=== PATIENT | female | born 1940 | race Caucasian/White ===

== ENCOUNTER 2017-02-02 16:08 | Inpatient (IN) | payer OTHER ==
[~2017-02-02] VITALS: Ht 152.4 cm; Wt 59.0 kg
--- NOTE | ~2017-02-02 | 2DMMODE ---
[facility] [address] [place] [address] 2 D/M-MODE ECHOCARDIOGRAM Name: LOUANNROC JULIA Room #: 422-P [facility] IN M.R.#: [id number] Admission: 02/02/17 Attend Phys: Candido Hannon, Discharge: Date of : 44 Date of Service: 02/03/17 1019 Report #: [id number] THIS REPORT FOR: //name// APPROVED REPORT Study performed: 02/03/2017 08:30:44 EXAM: Comprehensive 2D, Doppler, and color-flow Echocardiogram Patient Location: Echo lab Room #: [facility] Status: routine BSA: 1.55 HR: 84 bpm BP: 106/52 mmHg Rhythm: NSR Other Information Study Quality: Adequate Indications CAD Pericardial Effusion Hx: HLD 2D Dimensions RVDd: 35.41 mm LVEF(%): 60.64 (>50%) IVSd: 7.74 (7-11mm) LVOT Diam: 21.74 (18-24mm) LVDd: 49.72 mm PWd: 8.51 (7-11mm) Ascending Ao: 28.39 (22-36mm) LVDs: 33.55 (25-40mm) Aortic Root: 29.57 mm Oscar's LVEF: 60.64 % Volumes Left Atrial Volume (Systole) Single Plane 4CH: 44.85 mL Single Plane 2CH: 36.53 mL LA ESV Index: 29.00 mL/m2 Aortic Valve AoV Peak Mikhail.: 1.81 m/s AO Peak Gr.: 13.13 mmHg LVOT Max P.93 mmHg LVOT Max V: 1.41 m/s KEYA Vmax: 2.88 cm2 Mitral Valve [facility] [email or web address] [address] 2 D/M-MODE ECHOCARDIOGRAM Name: ROC LEW Room #: 422-P [facility] IN .R.#: [id number] Admission: 02/02/17 Attend Phys: Candido Hannon, Discharge: Date of : 44 Date of Service: 02/03/17 1019 Report #: [id number] E/A Ratio: 0.0 MV E Max Mikhail.: 0.87 m/s MV A Mikhail.: 0.00 m/s IVRT: 69.20 ms Pulmonary Valve PV Peak Mikhail.: 1.04 m/s PV Peak Gr.: 4.29 mmHg Tricuspid Valve TR Peak Mikhail.: 2.52 m/s RAP Estimate: 5.00 mmHg TR Peak Gr.: 25.43 mmHg PA Pressure: 30.00 mmHg Left Ventricle The left ventricle is normal size. There is normal left ventricular wall thickness. Left ventricular systolic function is normal. LVEF is 60-65%. Grade I - abnormal relaxation pattern. Right Ventricle The right ventricle is normal size. The right ventricular systolic function is normal. Atria The left atrium size is normal. The right atrium size is normal. Aortic Valve The aortic valve is normal in structure. No aortic regurgitation is present. There is no aortic valvular stenosis. Mitral Valve The mitral valve is normal in structure. There is mitral annular calcification. Trace mitral regurgitation. No evidence of mitral valve stenosis. Tricuspid Valve The tricuspid valve is normal in structure. Trace tricuspid regurgitation. Pulmonic Valve The pulmonary valve is normal in structure. There is no pulmonic valvular regurgitation. Great Vessels The aortic root is normal in size. The ascending aorta is normal in size. IVC is normal in size and collapses >50% with [facility] [address] [place] [address] 2 D/M-MODE ECHOCARDIOGRAM Name: ROC LEW Room #: 422-P [facility] IN M.R.#: [id number] Admission: 02/02/17 Attend Phys: Candido Hannon, Discharge: Date of : 44 Date of Service: 02/03/17 1019 Report #: [id number] inspiration. Pericardium Trace pericardial effusion. <Conclusion> The left ventricle is normal size. LVEF is 60-65%. The aortic valve is normal in structure. The mitral valve is normal in structure. There is mitral annular calcification. Trace mitral regurgitation. The tricuspid valve is normal in structure. Trace tricuspid regurgitation. The pulmonary valve is normal in structure. <ELECTRONICALLY SIGNED> By: Mickey Cotter MD 02/03/17 1019 1019 [id number] Mickey Cotter MD /INF
--- NOTE | ~2017-02-02 | EKG ---
[address] [place] [address] ELECTROCARDIOGRAM REPORT Name: LOUANNROCSALVADOR DUMONT Room #: 422-P ADM IN M.R.#: [id number] Admission: 02/02/17 Attend Phys: Candido Hannon DO Discharge: Date of : 44 Report #: [id number] THIS REPORT FOR: //name// [facility] ED Test Date: 2017-02-02 Test Time: 18:23:47 Pat Name: ROC LEW Department: Room: 422 Gender: F Cell [employer]: MURPHY : 1940 Requested By: Demetrio Cervantes Order Number: [id number] MD: Neo Thomas Measurements Intervals [place] Rate: 89 P: 40 [place]: 150 QRS: 13 QRSD: 91 T: 30 QT: 390 QTc: 475 Interpretive Statements Sinus rhythm Nonspecific ST and T wave abnormality No previous ECG available for comparison Electronically Signed On 02-03-2017 7:30:17 CDT by Neo Thomas [email or web address] <ELECTRONICALLY SIGNED> By: Neo Thomas MD, [facility] 02/03/17 0730 182 182 Neo Thomas MD, FACC /EPI
[~2017-02-02 16:08] MED LIST: ASPIR 8181 MG PO; AZULFIDINE500 M1 PO; DOXYCYCLINE 10100 M1 PO; ISOSORBIDE MON120 MG PO; LOMOTIL TABLET1 EACH PO; NEURONTIN 300300 M1 PO; NEXIUM40 MG PO; NITROGLYCERIN0.4 MG SUBLING; NORCO 10-325 T1 EACH PO; NORCO 5-325 TA1 EACH PO; PAMELOR10 MG PO; RANEXA500 MG PO; VITAMIN D1000 UNI1 PO; WELLBUTRIN XL300 MG PO; XANAX 0.25 MG0.25 MG PO; ZETIA10 MG PO
[2017-02-02 16:23] VITALS: BP 203/99
[2017-02-02] MEDS ORDERED: SERTRALINE HCL25 M1 PO (16:49)
[2017-02-02 16:52] LABS: URINE BILIRUBIN NEGATIVE (Negative); URINE BLOOD NEGATIVE (Negative); URINE COLOR YELLOW; URINE GLUCOSE-RANDOM* NEGATIVE (Negative); URINE KETONES NEGATIVE (Negative); URINE NITRITE NEGATIVE (Negative); URINE PROTEIN (DIPSTICK) TRACE (Negative); URINE UROBILINOGEN 0.2 E.U./dl (0.2-1.0)
[2017-02-02 17:14] LABS: ABSOLUTE NEUTROPHILS 6.5 thou/uL (1.4-8.2); BASOPHILS 0.3 % (0.0-2.0); EOSINOPHILS 0.1 % (0.0-3.0); HEMATOCRIT 38.8 % (37.0-47.0); HEMOGLOBIN 13.5 gm/dL (12.0-15.0); LYMPHOCYTES 16.2 % (24.0-44.0); MANUAL DIFF NO; MCH 31.8 pg (26.0-34.0); MCHC 34.7 g/dL (28.0-37.0); MCV 91.9 fL (80.0-100.0); MONOCYTES 5.1 % (1.0-8.0); PLATELET COUNT 162 thou/uL (150-400); POLYS 78.3 % (36.0-66.0); RBC 4.23 mil/uL (4.20-5.00); RDW 12.7 % (10.5-14.5); WBC 8.3 thou/uL (4.0-11.0)
[2017-02-02 17:24] LABS: CALCIUM 9.2 mg/dL (8.5-10.1); CREATININE 0.9 mg/dL (0.6-1.0); POTASSIUM 3.7 mmol/L (3.5-5.1)
[2017-02-02 17:32] LABS: ALBUMIN 4.3 g/dL (3.4-5.0); DIRECT BILIRUBIN 0.2 mg/dL (<0.1-0.3); TOTAL BILIRUBIN 0.9 mg/dL (<0.1-1.0); TOTAL PROTEIN 7.1 g/dL (6.4-8.2)
[2017-02-02 19:18] VITALS: BP 183/93
[2017-02-02 20:25] VITALS: BP 168/76
[2017-02-02] MEDS ORDERED: SYNTHROID25 MCG PO (22:19)
[2017-02-03 03:34] VITALS: BP 106/52
[2017-02-03 05:54] LABS: HEMATOCRIT 37.5 % (37.0-47.0); HEMOGLOBIN 12.6 gm/dL (12.0-15.0); MCH 31.4 pg (26.0-34.0); MCHC 33.7 g/dL (28.0-37.0); MCV 93.3 fL (80.0-100.0); RBC 4.02 mil/uL (4.20-5.00); WBC 6.9 thou/uL (4.0-11.0)
[2017-02-03 06:05] LABS: CALCIUM 8.2 mg/dL (8.5-10.1); POTASSIUM 4.2 mmol/L (3.5-5.1)
[2017-02-03 07:56] VITALS: BP 115/60
[2017-02-03 10:32] VITALS: BP 115/60
[2017-02-03 12:21] VITALS: BP 115/60
== END 2017-02-03 11:51 | disposition home or self-care (01) | DRG 694 ==
LOC: ER 16:08 → EROBS 19:07 → 4E 19:07 → ENTRNSPT 02-03 11:41 → EDTRNSPTSTS 02-03 11:46 → 4E 02-03 11:51
PROVIDERS: Family Medicine; Nurse Practitioner; Nurse Practitioner Family; Physician Assistant
DX: N20.2 Calculus of kidney with calculus of ureter (principal); I31.3 Pericardial effusion (noninflammatory); E87.2 Acidosis; E78.5 Hyperlipidemia, unspecified; N83.202 Unspecified ovarian cyst, left side; I25.10 Atherosclerotic heart disease of native coronary artery without angina pectoris; F32.9 Major depressive disorder, single episode, unspecified; F41.9 Anxiety disorder, unspecified; Z90.710 Acquired absence of both cervix and uterus; Z90.49 Acquired absence of other specified parts of digestive tract; Z87.891 Personal history of nicotine dependence; Z88.0 Allergy status to penicillin; Z79.82 Long term (current) use of aspirin; Z79.899 Other long term (current) drug therapy; Z88.1 Allergy status to other antibiotic agents; Z88.8 Allergy status to other drugs, medicaments and biological substances
CPT/HCPCS: 10183